=== PATIENT | female | born 1940 | race Asian ===

== ENCOUNTER 2020-10-11 13:11 | Emergency (ER) | payer MEDICARE ==
[~2020-10-11] VITALS: Ht 149.9 cm; Wt 72.7 kg
[2020-10-11 14:06] VITALS: BP 127/59
[2020-10-11] MEDS ORDERED: DiphenhydrAMINE HCL 25 MG CAPSULE PO ONE (14:15)
[2020-10-11 14:22] LABS: GLUCOSE,POINT OF CARE 106 MG/DL (70-110)
== END 2020-10-11 15:05 | disposition home or self-care (01) ==
LOC: EMS 13:18
DX: H10.13 Acute atopic conjunctivitis, bilateral (principal); I10 Essential (primary) hypertension; E11.9 Type 2 diabetes mellitus without complications
CPT/HCPCS: 82962; 99282